=== PATIENT | female | born 1950 | race Caucasian/White ===

== ENCOUNTER → 2024-10-21 | Outpatient (CLI) | payer OTHER, SELFPAY ==
--- NOTE | 2024-10-21 09:05 | XR_ITS ---
Examination: PA lateral chest 2 views TECHNIQUE: Upright PA lateral chest 2 views Exam date and time: October 21, 2024 0929 hours Comparison December 30, 2019 INDICATIONS: Leukocytosis one year, recommend arthritis diagnosis FINDINGS: Large retrocardiac gastric hernia Normal heart size No pneumonia or pulmonary edema Prominent osteopenia IMPRESSION: No active disease
== END | disposition home or self-care (01) ==
PROVIDERS: PCP Internal Medicine; Referring Provider Internal Medicine Rheumatology; Visit Provider Internal Medicine Rheumatology
DX: D72.829 Elevated white blood cell count, unspecified (principal)
CPT/HCPCS: 71046

== ENCOUNTER → 2025-07-19 | Outpatient (CLI) | payer OTHER, SELFPAY ==
--- NOTE | 2025-07-19 11:57 | XR_ITS ---
Examination: Shoulder bilateral, 6 views Technique: Shoulder AP internal rotation, AP external rotation, Y view shoulder Exam date and time :July 19, 2025 0001 hours INDICATIONS: Bilateral shoulder pain years, diagnosis rheumatoid arthritis FINDINGS: Severe osteopenia Advanced erosive arthritis left glenohumeral joint Mild erosive arthritis right glenohumeral joint No shoulder fractures or dislocations IMPRESSION: Advanced erosive arthritis left glenohumeral joint
--- NOTE | 2025-07-19 11:58 | XR_ITS ---
Examination: PA lateral chest 2 views TECHNIQUE: Upright PA lateral chest 2 views Date and time: July 19, 2025 12:15 PM INDICATIONS: Coughing 4 days. FINDINGS: Large retrocardiac gastric hernia Normal heart size Suspicious for minimal pneumonia left base IMPRESSION: Suspicious for minimal pneumonia left base
== END | disposition home or self-care (01) ==
LOC: SDIM 11:46
PROVIDERS: PCP Nurse Practitioner; Referring Provider Nurse Practitioner; Visit Provider Nurse Practitioner
DX: M13.812 Other specified arthritis, left shoulder (principal); M25.511 Pain in right shoulder; R07.9 Chest pain, unspecified
CPT/HCPCS: 71046; 73030